=== PATIENT | female | born 1965 | race African-American/Black ===

== ENCOUNTER 2017-10-02 13:43 | Emergency (ER) | payer MEDICARE ==
[2017-10-02 14:15] VITALS: BP 135/91; PULSE 100; TEMP 98.2; BMI 35.1
--- NOTE | 2017-10-02 15:01 | PDOC ---
History of Present Illness - General History Source: Patient Exam Limitations: No Limitations - History of Present Illness Initial Comments: 10/02/17 15:31 Chief complaint: Flu like symptoms History of Present Illness: The patient complains of multiple days of body aches , chills, nasal congestion, and productive cough with clear sputum. The patient reports a burning in her chest whenever she coughs. She reports not being able to get much sleep last night due to her symptoms. She reports taking Tamiflu at home with minimal relief. Reports sick contacts because of her job. Review of Systems: The patient denies fever. She denies nausea, vomiting, diarrhea, shortness of breath or chest pain. She denies urinary symptoms. Past Medical History: History of hypertension and arthritis. Social History: The patient is employed and works at a [employer]. She denies drug, alcohol or tobacco use. <Pearl Ramos - Last Filed: 10/02/17 15:31> - History of Present Illness Initial Comments: 10/02/17 15:48 Physical exam: Alert and oriented well-developed well-nourished no acute distress cooperative Afebrile, vital signs normal HEENT: PERRLA, conjunctivae clear, easy clear, throat clear. Neck supple without bruit mass or nodes Chest clear CV regular without murmur rub or gallop Abdomen benign Skin clear, no rash, adequate turgor and wet mucous membranes Neurological intact Impression: Viral syndrome, without significant respiratory involvement Plan: Rest, symptomatic treatment, and follow-up if symptoms worsen. Fully ambulatory and in no distress at discharge to follow-up as directed <Isai Bear - Last Filed: 10/02/17 15:50> - General Chief Complaint: Cold Symptoms Stated Complaint: BODY ACHES Time Seen by Provider: 10/02/17 13:49 Past History <Pearl Ramos - Last Filed: 10/02/17 15:31> - Suicide/Smoking/Psychosocial Hx Smoking History: Never smoked Have you smoked in the past 12 months: No Information on smoking cessation initiated: No Hx Alcohol Use: No Drug/Substance Use Hx: No <Isai Bear - Last Filed: 10/02/17 15:50> - Past Medical History Allergies/Adverse Reactions: Allergies Allergy/AdvReac Type Severity Reaction Status Date / Time No Known Allergies Allergy Verified 10/02/17 14:06 Home Medications: Ambulatory Orders Guaifenesin AC [Robitussin-AC] 1 - 2 tsp PO Q4HWA PRN #120 ml MDD 8 10/02/17 Hydrochlorothiazide [Hctz -] 12.5 mg PO DAILY 10/02/17 Ibuprofen 800 mg PO TID #20 tablet 10/02/17 Oxycodone HCl/Acetaminophen [Percocet 5-325 mg Tablet] 1 tab PO PRN PRN Review of Systems - Review of Systems Able to Perform ROS?: Yes All Other Systems: Reviewed and Negative <Pearl Ramos - Last Filed: 10/02/17 15:31> *Physical Exam - Vital Signs Last Vital Signs Temp Pulse Resp BP Pulse Ox 98.2 F 100 H 20 135/91 97 10/02/17 13:45 10/02/17 13:45 10/02/17 13:45 10/02/17 13:45 10/02/17 13:45 <Pearl Ramos - Last Filed: 10/02/17 15:31> - Vital Signs Last Vital Signs Temp Pulse Resp BP Pulse Ox 98.2 F 100 H 20 135/91 97 10/02/17 13:45 10/02/17 13:45 10/02/17 13:45 10/02/17 13:45 10/02/17 13:45 <Isai Bear - Last Filed: 10/02/17 15:50> *DC/Admit/Observation/Transfer - Attestations Scribe Attestion: 10/02/17 15:36 Documentation prepared by Pearl Ramos, acting as medical housekeeper for Isai Malin MD. <Pearl Ramos - Last Filed: 10/02/17 15:31> - Discharge Dispostion Admit: No <Isai Bear - Last Filed: 10/02/17 15:50> Diagnosis at time of Disposition: Viral syndrome - Discharge Dispostion Disposition: HOME Condition at time of disposition: Stable - Prescriptions Prescriptions: Guaifenesin AC [Robitussin-AC] 1 - 2 tsp PO Q4HWA PRN #120 ml MDD 8 PRN Reason: Cough Ibuprofen 800 mg PO TID #20 tablet - Patient Instructions Printed Discharge Instructions: DI for Viral Upper Respiratory Infection-Child Additional Instructions: Rest, fluids, medication as directed. Recheck ER if high fever or difficulty breathing. Otherwise follow-up with primary physician 2-3 days.
== END 2017-10-02 15:15 | disposition home or self-care (01) ==
LOC: FER 13:43
DX: B34.9 Viral infection, unspecified (principal)
CPT/HCPCS: 99282-25

== ENCOUNTER 2022-12-28 06:11 | Emergency (ER) | payer MEDICARE ==
[2022-12-28 06:25] VITALS: BP 135/64; PULSE 72; RESP 16; TEMP 98.4; BMI 35.2
== END 2022-12-28 08:24 | disposition home or self-care (01) ==
LOC: FER 06:11
DX: R05.1 Acute cough (principal); Z20.822 Contact with and (suspected) exposure to COVID-19
CPT/HCPCS: 0241U-QW; 99283-25

== ENCOUNTER 2025-06-11 01:53 | Emergency (ER) | payer OTHER ==
[2025-06-11 02:04] VITALS: BP 163/87; PULSE 71; RESP 18; TEMP 98.4; BMI 36.6
[2025-06-11] MEDS ORDERED: AMOXICILLIN 250 MG CAPSULE ONE (02:13)
[2025-06-11] MEDS: AMOXICILLIN 500 MG CAPSULE (FP) PO ONE (02:13)
[2025-06-11] MEDS ORDERED: IBUPROFEN 600 MG TABLET (FP) PO ONE (02:13)
[2025-06-11] MEDS: IBUPROFEN 600 MG TABLET (FP) PO ONE (02:14)
== END 2025-06-11 03:18 | disposition home or self-care (01) ==
LOC: FER 01:53
DX: H66.91 Otitis media, unspecified, right ear (principal)
CPT/HCPCS: 99283-25